=== PATIENT | male | born 1990 | race Caucasian/White ===

== ENCOUNTER 2024-09-25 11:14 | Emergency (ER) | payer BC ==
[~2024-09-25] VITALS: Ht 175.3 cm; Wt 73.6 kg
[2024-09-25 12:19] VITALS: BP 128/78; PULSE 88; RESP 16; TEMP 100.1; O2SAT 98
== END 2024-09-25 12:20 | disposition home or self-care (01) ==
LOC: ER 11:15
DX: B34.9 Viral infection, unspecified (principal); Z20.822 Contact with and (suspected) exposure to COVID-19
CPT/HCPCS: 36415; 87502; 87503; 87811; 99283